=== PATIENT | male | born 1995 | race Hispanic/Latino ===

== ENCOUNTER 2017-09-29 20:33 | Emergency (ER) | payer SELFPAY ==
--- NOTE | 2017-09-29 22:04 | RAD ---
SINGLE VIEW OF THE CHEST: 09/29/17 COMPARISON: None. HISTORY: Tachycardia and chest pain. FINDINGS: Single view of the chest shows a normal sized cardiomediastinal silhouette. There is no evidence of c onsolidation, mass, or pleural effusion. The bones are unremarkable. IMPRESSION: No evidence of acute cardiopulmonary disease. POS: C
[2017-09-29 22:14] LABS: Acetaminophen Less than 6.0 mcg/mL (10.0-30.0); Alcohol Less than 10 mg/dL (Less than 10); Salicylate Less than 8.0 mg/dL (15.0-30.0)
== END 2017-09-29 23:05 | disposition home or self-care (01) ==
LOC: ERS 20:33
DX: R00.2 Palpitations (principal); Z79.899 Other long term (current) drug therapy
CPT/HCPCS: 36415; 71045; 80307; 85379; 93005

== ENCOUNTER 2017-10-01 03:31 | Emergency (ER) | payer SELFPAY | END 2017-10-01 04:40 | disposition left against medical advice (07) | LOC: ERS 03:31 | DX: Z53.21 Procedure and treatment not carried out due to patient leaving prior to being seen by health care provider (principal) | CPT/HCPCS: 93005 ==